=== PATIENT | female | born 1975 | race African-American/Black ===

== ENCOUNTER 2020-10-03 15:22 | Outpatient (CLI) | payer BC, SELFPAY ==
--- NOTE | ~2020-10-03 | MM_ITS ---
EXAMINATION: MM screening desiree BI w sivakumar HISTORY: Screening TECHNIQUE: Craniocaudal and mediolateral oblique 3-D tomosynthesis images were obtained and synthetic 2-D images were generated. CAD analysis was submitted and interpreted. COMPARISON: 10/13/2018 BREAST PARENCHYMAL COMPOSITION: There are scattered areas of fibroglandular density. FINDINGS: There is no evidence of suspicious mass, calcification, or architectural distortion to sugg est malignancy in either breast. There has been no suspicious interval change. IMPRESSION: 1. No mammographic evidence of malignancy. 2. Recommend routine screening mammography in one year. BI-RADS Category 1: Negative Reviewed, dictated and finalized at location A.
== END 2020-10-03 15:23 | disposition home or self-care (01) ==
PROVIDERS: PCP Physician Assistant; Visit Provider Physician Assistant
DX: Z12.31 Encounter for screening mammogram for malignant neoplasm of breast (principal)
CPT/HCPCS: 77063; 77067

== ENCOUNTER → 2020-11-03 10:45 | Outpatient (CLI) | payer BC, SELFPAY ==
--- NOTE | ~2020-11-03 | US_ITS ---
EXAMINATION: US pelvic complete w TV DATE: 11/03/2020 11:31 INDICATION: Enlarged uterus Comparison:10/21/2017 TECHNIQUE: Multiple transabdominal and endovaginal sonographic images of the pelvis performed. FINDINGS: The uterus measures 10.5 x 7.9 x 7.8 cm. There are multiple uterine masses, largest measuri ng 6 cm maximum dimension. The endometrial complex measures 7 mm. The ovaries are not visualized. There is no free fluid in the pelvis. There are no abnormal masses seen on either side. IMPRESSION: 1. Enlarged fibroid uterus. Reviewed, dictated and finalized at location A. IMPRESSION: 1. Enlarged fibroid uterus.
--- NOTE | ~2020-11-03 | US_ITS ---
EXAMINATION: US thyroid EXAM DATE: 11/03/2020 11:23 INDICATION: E04.9 - Nontoxic goiter, unspecified . TECHNIQUE: Multiple grayscale and Doppler images of the thyroid were obtained (by a technologist who performed the scan) and subsequently reviewed. Individual nodules and recommendations may be reporte d in accordance with TI-RADS system as designated by the 2017 ACR White Paper TI-RADS committee. The re is no prior study for comparison. FINDINGS: Right thyroid lobe measures 4.5 x 1.8 x 1.5 cm, the left measuring 4.3 x 1.8 x 1.6 cm. There is diffu sely heterogeneous thyroid echogenicity with probable identification of a couple of thyroid nodules w ithin the heterogeneous parenchyma. Largest right thyroid lobe nodule measures 9 x 8 x 9 mm, solid (2 points), hypoechoic (2 points), wid er than tall, smooth well defined margin, without echogenic foci, category TR4 for this nodule. Largest possible left thyroid nodule measures 1.4 x 1.0 x 1.0, solid (2 points), heterogeneous echoge nicity (difficult to determine, 1 point), wider than tall, smooth well defined margin, without echoge claudia foci, category TR3 for this nodule. IMPRESSION: Mild thyromegaly and several thyroid nodules suspected. Recommend one-year follow-up th yroid ultrasound. Reviewed, dictated and finalized at location A. IMPRESSION: Mild thyromegaly and several thyroid nodules suspected. Recommend one-year follow-up thyroid ultrasound.
== END ==
PROVIDERS: Visit Provider Obstetrics & Gynecology
DX: N85.2 Hypertrophy of uterus (principal); E04.9 Nontoxic goiter, unspecified; D25.9 Leiomyoma of uterus, unspecified
CPT/HCPCS: 76536; 76830; 76856

== ENCOUNTER 2022-03-04 09:25 | Outpatient (CLI) | payer BC, SELFPAY ==
--- NOTE | ~2022-03-04 | MM_ITS ---
EXAMINATION: MM screening desiree BI w sivakumar HISTORY: Screening mammogram TECHNIQUE: Craniocaudal and mediolateral oblique 3-D tomosynthesis images were obtained and synthetic 2-D images were generated. CAD analysis was submitted and interpreted. COMPARISON: and bilateral screening mammogram examinations BREAST PARENCHYMAL COMPOSITION: The breasts are almost entirely fatty. FINDINGS: There is no evidence of suspicious mass, calcification, or architectural distortion to sugg est malignancy in either breast. There has been no suspicious interval change. IMPRESSION: 1. No mammographic evidence of malignancy. 2. Recommend routine screening mammography in one year. BI-RADS Category 1: Negative Reviewed, dictated and finalized at location A.
== END 2022-03-04 09:26 | disposition home or self-care (01) ==
PROVIDERS: Visit Provider Physician Assistant
DX: Z12.31 Encounter for screening mammogram for malignant neoplasm of breast (principal)
CPT/HCPCS: 77063; 77067

== ENCOUNTER 2022-04-27 10:12 | Outpatient (CLI) | payer BC, SELFPAY ==
--- NOTE | ~2022-04-27 | US_ITS ---
EXAMINATION: US thyroid DATE: 04/27/2022 11:08 INDICATION: Nontoxic goiter, unspecified. TECHNIQUE: Multiple ultrasound images of the thyroid were obtained. COMPARISON: Ultrasound 11/03/2020 FINDINGS: The right thyroid lobe measures 5.3 x 1.8 x 2.3 cm. The left thyroid lobe measures 4.6 x 2.0 x 1.8 c m. The thyroid demonstrates diffusely coarsened echotexture. The thyroid is filled with ill-defined nodules of similar ultrasound appearance. Vascularity is increased. IMPRESSION: 1. Heterogeneous, hypervascular thyroid, likely chronic lymphocytic (Don) thyroiditis. Reviewed, dictated and finalized at location A. SOLUTION ARCHITECT
--- NOTE | ~2022-04-27 | US_ITS ---
EXAMINATION: US pelvic complete w TV DATE: 04/27/2022 11:08 INDICATION: N85.2 - Hypertrophy of uterus . Follow-up fibroids. TECHNIQUE: Multiple transabdominal and endovaginal sonographic images of the pelvis were obtained. COMPARISON: 11/03/2020 FINDINGS: Uterus: 11.2 x 8.1 x 7.4 cm. Heterogeneous uterine parenchyma due to multiple uterine fibroids. The l argest measures 6.4 x 7.3 x 5.8 cm. Endometrial complex measures 7 mm. Right Ovary: Not adequately visualized. Left Ovary: Not visualized. There is no free fluid in the pelvis. IMPRESSION: Uterine fibroids, detailed above. Bilateral ovaries not adequately visualized. Reviewed, dictated and finalized at location K. STIC SENSOR OPERATOR
== END 2022-04-27 10:13 | disposition home or self-care (01) ==
PROVIDERS: PCP Obstetrics & Gynecology; Visit Provider Obstetrics & Gynecology
DX: E04.9 Nontoxic goiter, unspecified (principal); D25.9 Leiomyoma of uterus, unspecified; N85.2 Hypertrophy of uterus
CPT/HCPCS: 76536; 76830; 76856

== ENCOUNTER 2022-08-09 11:14 | Outpatient (CLI) | payer BC, SELFPAY ==
[2022-08-09 17:19] LABS: Free T4 Free Thyroxine 0.87 ng/mL (0.78-2.19); Vitamin D 25 Hydroxy 17.1 ng/mL
== END 2022-08-09 11:15 | disposition home or self-care (01) ==
LOC: ANHWCLAB 11:18
PROVIDERS: PCP Physician Assistant; Visit Provider Internal Medicine Endocrinology, Diabetes & Metabolism
DX: E55.9 Vitamin D deficiency, unspecified (principal); R79.89 Other specified abnormal findings of blood chemistry; R76.8 Other specified abnormal immunological findings in serum
CPT/HCPCS: 36415; 82306; 84439; 84443

== ENCOUNTER 2023-08-05 14:42 | Outpatient (CLI) | payer BC, SELFPAY ==
--- NOTE | ~2023-08-05 | MM_ITS ---
EXAMINATION: MM screening [facility] BI w sivakumar HISTORY: Screening mammogram TECHNIQUE: Craniocaudal and mediolateral oblique 3-D tomosynthesis images were obtained and synthetic 2-D images were generated. CAD analysis was submitted and interpreted. COMPARISON: 03/04/2022, 10/03/2020, 10/13/2018 BREAST PARENCHYMAL COMPOSITION: The breasts are almost entirely fatty. FINDINGS: No suspicious mass, calcification, or architectural distortion are identified in either linda ast to suggest malignancy. There has been no suspicious interval change. IMPRESSION: 1. No mammographic evidence of malignancy. 2. Recommend routine screening mammography in one year. BI-RADS Category 1: Negative Reviewed, dictated and finalized at location A. MAKER
== END 2023-08-05 14:43 | disposition home or self-care (01) ==
LOC: ANHIMG 14:45
PROVIDERS: PCP Physician Assistant; Visit Provider Obstetrics & Gynecology
DX: Z12.31 Encounter for screening mammogram for malignant neoplasm of breast (principal)
CPT/HCPCS: 77063; 77067

== ENCOUNTER 2024-01-05 14:45 | Outpatient (CLI) | payer BC, SELFPAY ==
[2024-01-05 16:03] LABS: HIV 1/2 Ab P24 Ag Result Negative (Negative)
[2024-01-05 17:33] LABS: Hepatitis C Virus Antibody Negative (Negative)
[2024-01-05 18:23] LABS: Rapid Plasma Reagin Non-Reactive (NonReactive)
[2024-01-11 02:24] LABS: Hepatitis Be Antibody NON-REACTIVE (NON-REACTIVE)
== END 2024-01-05 14:46 | disposition home or self-care (01) ==
LOC: ANHLAB 14:47
PROVIDERS: Visit Provider Nurse Practitioner Obstetrics & Gynecology
DX: Z11.3 Encounter for screening for infections with a predominantly sexual mode of transmission (principal); E04.9 Nontoxic goiter, unspecified
CPT/HCPCS: 36415; 84443; 86592; 86703; 86707; 86803; G0432

== ENCOUNTER 2024-08-03 16:01 | Outpatient (CLI) | payer BC, SELFPAY ==
--- NOTE | ~2024-08-03 | US_ITS ---
EXAM: PELVIC ULTRASOUND HISTORY: N85.2 - Hypertrophy of uterus COMPARISON: 04/27/2022. FINDINGS: UTERUS: 21 x 11 x 12 cm. The endometrial complex measures 9 mm. Multiple fibroids are identified within the uterus. The largest is within the intramural space along the posterior body of the uterus measuring 10.8 x 10 .4 x 8.2 cm. Linear striations are also detected, findings suggesting adenomyosis RIGHT OVARY: Despite prolonged interrogation, the right ovary was not visualized. LEFT OVARY: The left ovary is unremarkable in echogenicity and size measuring 5.3 x 2.2 x 3.4 cm Dopplerable flow is identified. No free fluid is identified within the pelvis. IMPRESSION: Markedly enlarged fibroid uterus. Additional findings suggesting adenomyosis. Despite prolonged interrogation, the right ovary was not visualized. Reviewed, dictated and finalized at location A. R MACHINE TENDER
== END 2024-08-03 16:02 | disposition home or self-care (01) ==
PROVIDERS: PCP Obstetrics & Gynecology; Visit Provider Nurse Practitioner Obstetrics & Gynecology
DX: D25.9 Leiomyoma of uterus, unspecified (principal); N85.2 Hypertrophy of uterus
CPT/HCPCS: 76830; 76856

== ENCOUNTER 2024-10-05 14:24 | Outpatient (CLI) | payer BC, SELFPAY ==
--- NOTE | ~2024-10-05 | MM_ITS ---
EXAMINATION: MM screening [facility] BI w sivakumar HISTORY: Screening TECHNIQUE: Craniocaudal and mediolateral oblique 3-D tomosynthesis images were obtained and synthetic 2-D images were generated. CAD analysis was submitted and interpreted. COMPARISON: Comparison to multiple prior studies sequentially, with oldest reviewed study dated 10/13. BREAST PARENCHYMAL COMPOSITION: Not dense: There are scattered areas of fibroglandular density. FINDINGS: There is no evidence of suspicious mass, calcification, or architectural distortion to sugg est malignancy in either breast. There has been no suspicious interval change. IMPRESSION: 1. No mammographic evidence of malignancy. 2. Recommend routine screening mammography in one year. BI-RADS Category 1: Negative Reviewed, dictated and finalized at location B.
--- OUTSIDE RECORDS SUMMARY | 2024-10-05 14:29 | XMS_ITS | Clinical Summary ---
Author Organization [facility] Address [facility] [place] [address] Care Team Providers Care Lead Generator Name Role Phone Chaparro Alves PA-C Primary Care Provider [phone] Allergies Active Allergy Reactions Criticality Noted Date Comments Aspirin Other (see comment) 11/10/2020 told me not to take it because of my asthma Medications albuterol sulfate HFA 108 (90 Base) MCG/ACT inhaler Inhale 2 puffs into the lungs. 12/06/2019 Active valACYclovir 500 MG tablet TAKE 1 TABLET BY MOUTH EVERY 12 HOURS FOR 3 DAYS NEEDED FOR SYMPTOMS 10/09/2020 Active tranexamic acid 650 MG tablet TAKE 2 TABLETS BY MOUTH THREE TIMES DAILY NEEDED FOR HEAVY PERIOD 10/09/2020 Active methylPREDNISol one, AYAN, (MEDROL DOSEPAK) 4 MG tablet Take 1 tablet (4 mg total) by mouth daily. 6 TABLETS ON DAY ONE, 5 TABLETS DAY TWO, 4 TABLETS DAY THREE, 3 TABLETS DAY FOUR, 2 TABLETS DAY FIVE, AND 1 TABLET DAY SIX 1 each 04/24/2023 Active Active Problems No known active problems Family History Medical History Relation Comments Diabetes Father Anxiety Mother Depression Mother Relation Status Comments Father Alive Mother Alive Social History Tobacco Use Types Packs/Day Years Used Date Smoking Tobacco: Never Smokeless Tobacco: Never Alcohol Use Standard Drinks/Week Comments Not Currently 0 (1 standard drink = 0.6 oz pur e alcohol) socially Comments No Sex and Gender Information Value Date Recorded Sex Assigned at Not on file Legal Sex Female 7:41 PM CDT Gender Identity Not on file Sexual Orientation Not on file Last Filed Vital Signs Vital Sign Reading Time Taken Comments Blood Pressure 113/69 06/18/2024 11:49 AM POWER ENGINEER Pulse 98 06/18/2024 11:49 AM POWER ENGINEER Temperature 36.8 C (98.3 F) 06/18/2024 11:49 AM POWER ENGINEER Respiratory Rate 18 06/18/2024 11:49 AM POWER ENGINEER Oxygen Saturation 100% 06/18/2024 11:49 AM POWER ENGINEER Inhaled Oxygen Concentration - - Weight 101.2 kg (223 lb) 06/18/2024 11:49 AM POWER ENGINEER Height 160 cm (5' 3 ) 06/18/2024 11:49 AM POWER ENGINEER Body Mass Index 39.5 06/18/2024 11:49 AM POWER ENGINEER Plan of Treatment Health Maintenance Due Date Last Done Comments Cervical Cancer Screening Pa p Smear (Age 30 to 64) Every 3 Years 1977 Colorectal Cancer Screening Colonoscopy (10 Years) 1977 Annual Physical 01/19/1980 Hepatitis C 1995 Hepatitis B Vaccines (1 of 3 - 19+ 3-dose series) 01/19/1996 Cervical Cancer Screening Pa p with HPV Testing (Age 30 to 64) Every 5 Years 2007 Cervical Cancer Screening wi HPV 2007 Mammogram Screening 2017 COVID-19 Vaccine (4 - 2023-2 5 season) 2024 04/18/2021, 08/19/2020, 07/29/2020 DTaP, Tdap and Td Vaccines ( 2 - Td or Tdap) 07/13/2024 07/13/2014 Meningococcal B Vaccine Aged Out No l onger eligible based on patient's age to complete this topic Meningococcal Vaccine Aged Out No laurie meliza eligible based on patient's age to complete this topic Pneumococcal Vaccine: Pediatrics (0 to 5 Years) and At-Risk Patients (6 to 49 Years) Aged Out No longer eligible b ased on patient's age to complete this topic RSV Immunizations Under 20 Months Aged Out No longer eligible b ased on patient's age to complete this topic Insurance [facility] Care Teams Lead Generator Relationship Specialty Start Date End Date Chaparro Alves PA-C [address] [place] [phone] PCP - General 05/30/13
--- OUTSIDE RECORDS SUMMARY | 2024-10-05 14:29 | XMS_ITS | Referral Summary ---
Author Organization [facility] Address [address] [place] [id number] Care Team Providers Care Welding Setter Name Role Phone Chaparro Alves Primary Care Provider [phone] Allergies Active Allergy Reactions Criticality Noted Date Comments Aspirin Unknown 04/25/2019 Medications valACYclovir (VALTREX) 500 mg tablet 09/03/2019 Active tranexamic acid (LYSTEDA) 650 mg tablet TAKE 2 TABLETS BY MOUTH THREE TIMES DAILY NEEDED FOR HEAVY PERIOD 10/09/2020 Active albuterol HFA (PROVENTIL HFA,VENTOLIN HFA,PROAIR HFA) 90 mcg/actuation inhalerIndicati ons:Bronchospas m Prevention Inhale 2 puffs every 6 (six) hours as needed for wheezing 1 each 05/11/2023 Active Active Problems Problem Noted Date Diagnosed Date Diarrhea of presumed infectious origin Assessment & Plan (08/24/2023 4:47 PM REGISTERED PHLEBOTOMIST PART TIME): This is resolving and patient is feeling better we did discuss that Pepto-Bismol can dark in your stool she will pay attention for returned to normal we did discuss proper hydration Dehydration 08/24/2023 Assessment & Plan (08/24/2023 4:47 PM REGISTERED PHLEBOTOMIST PART TIME): This is mild and patient is able to keep fluids down we discussed the importance of hydration and how to properly hydrate she will update me if she has any Visit for suture removal 06/21/2023 Assessment & Plan (06/21/2023 8:36 AM REGISTERED PHLEBOTOMIST PART TIME): No issues EIC (epidermal inclusion cyst) 06/09/2023 Assessment & Plan (06/09/2023 3:33 PM REGISTERED PHLEBOTOMIST PART TIME): Images from the original note were not included. minor Surgery: Pt here with: excision cyst on left breast Discussed risks and complications to include: bleeding, infection, scarring, bruising, discomfort, recurrence Surgical outcome discussed Pt verbalizes understanding and all questions answered. Procedure: 1. Site(s) prepped and draped and local anaesthetic administered under sterile technique. Cleansed with Surgiscrub Infiltrated with: 1% lidocain with without 2. Excision/biopsy done, lesion removed, and sent to pathology: 3. Site closed with: Four 5. Suture nylon 4. Bacitracin and bandage applied EBL: Trace Pt tolerated the procedure well Post procedure instructions: 1. Keep site clean and dry. 2. Watch for infection or complication, handout provided 3. Sutures removed on: 10 days 4. OTC tylenol or NSAIDs prn discomfort RTC prn or if problems arise Pt verbalizes understanding and all questions answered Subacute cough 05/11/2023 Assessment & Plan (05/11/2023 3:37 PM REGISTERED PHLEBOTOMIST PART TIME): Vital signs stable, no respiratory distress, nontoxic appearance, wheezing on exam, 99% on RA Supportive care, rest, clear sugar-free fluids (water), steam inhalation/humidifier Refilled albuterol inhaler to use prn Prednisone 40 mg x 5 days Augmentin as directed If no improvement, will need to f/u with PCP for further workup Sensation of fullness in both ears 05/11/2023 Assessment & Plan (05/11/2023 3:39 PM REGISTERED PHLEBOTOMIST PART TIME): Attempted ear irrigation, pt did not tolerate well Recommend OTC Debrox Other chest pain 01/20/2023 Assessment & Plan (01/20/2023 2:44 PM CDT): This is not present today in his consistent with musculoskeletal pain it is relieved with walking around I have asked the patient to palpate her pain next time it happens to see if she can locate the spot EKG was sinus rhythm risk factors are low we did discuss signs and symptoms that would warrant urgent attention Acute non-recurrent maxillary sinusitis 04/12/20 Assessment & Plan (04/12/2022 12:12 PM CDT): Aggressive nasal saline, meds as ordered Hot flashes 07/06/2021 Assessment & Plan (07/06/2021 2:12 PM REGISTERED PHLEBOTOMIST PART TIME): - unclear etiology, ddx includes thyroid d/o, elias-menopausal, covid - pt low risk for covid given 3 vaccinations and no exposure, staying/working at home - young for elias-menopause but given late menstrual period and mid-40s age possible cause - will check TSH, FSH/LH, prolactin - if all normal then reassurance and monitor for now Constipation 09/12/2020 Assessment & Plan (09/12/2020 4:18 PM CDT): - uncontrolled - start linzess 145mg daily - will go up or down on dose based on response - discussed use of fiber supplements and healthy diet - f/u in 2 mo Class 3 severe obesity due t o excess calories without serious comorbidity with body mass index (BMI) of 40.0 to 44.9 in adult 09/12/2020 Assessment & Plan (09/12/2020 4:19 PM CDT): - I recommend a healthy diet of 2,000 calories per day or less with plenty of fresh fruits and vegetables, whole grains, lean meats and fatty fish such as salmon - I recommend regular exercise of at least 30 minutes 4-5x/week to maintain a healthy heart, increase weight loss, and lower your blood pressure Lymphadenopathy 08/21/2020 Assessment & Plan (09/12/2020 4:17 PM CDT): - resolved - no further testing or treatment necessary - pt reassured Assessment & Plan (08/21/2020 3:19 PM REGISTERED PHLEBOTOMIST PART TIME): - supraclavicular lypmhadenopathy - likely reactive to COVID vaccination - pt reassured - pt to f/u in 2 wks, if still palpable then will get CXR, US, and mammogram. Dizziness 12/06/2019 Assessment & Plan (12/06/2019 3:53 PM CDT): Drink lots of water for hydration No operating a motor vehicle or machinery with dizziness Take medications as ordered Discussed reproducing signs and symptoms Chronic idiopathic constipation 04/25/2019 Assessment & Plan (04/26/2019 1:03 PM REGISTERED PHLEBOTOMIST PART TIME): Start Miralax 17g in 8oz water nightly for 1-2 weeks until BMs are soft, then decrease to every other night, then every 3rd night if bowel movements remain regular. Can also take a stool softener (Colace-docusate sodium) daily. Recommend increasing fiber in diet and fluids. Pain in pelvis 04/25/2019 Assessment & Plan (04/26/2019 1:02 PM REGISTERED PHLEBOTOMIST PART TIME): Unaware until PE, with mild tenderness on palpation. Urine dip was normal in office, did not send out for culture. Bilateral upper abdominal discomfort 04/25/2019 Assessment & Plan (04/26/2019 1:01 PM REGISTERED PHLEBOTOMIST PART TIME): Pepcid OTC as directed for upper abdominal pain as she states she has a history of inflammation in the lining of her stomach. Follow-up with PCP if symptoms don't improve or worsen. ER if increase in abdominal pain or fever or unable to have a BM. Asthma 12/25/2015 Assessment & Plan (05/11/2023 3:37 PM REGISTERED PHLEBOTOMIST PART TIME): Vital signs stable, no respiratory distress, nontoxic appearance, wheezing on exam, 99% on RA Supportive care, rest, clear sugar-free fluids (water), steam inhalation/humidifier Refilled albuterol inhaler to use prn Prednisone 40 mg x 5 days Augmentin as directed If no improvement, will need to f/u with PCP for further workup Assessment & Plan (01/20/2023 2:43 PM CDT): This is stable will follow Assessment & Plan (12/06/2019 3:56 PM CDT): Inhaler refilled Immunizations Immunization Administration Dates Next Due Influenza, Trivalent, IM (MDV) 07/13/2014 Influenza, Unspecified 06/09/2023(Deferr ed: Patient decision),03/26/2023(Deferred: Patient decision),06/09/2022(Deferred: Patient decision),04/22/2022(Deferred: Patient decision),04/20/2022(Deferred: Patient Refused),04/12/2022(Deferred: Patient Refused),04/12/2021(Deferred: Patient Refused),03/20/2020(Deferred: Patient Refused) Pfizer SARS-CoV-2 Monovalent Vaccination (12+ Yrs) PURPLE 04/18/2021,08/19/2020,07/29/2020 Tdap 07/13/2014 Social History Tobacco Use Types Packs/Day Years Used Date Smoking Tobacco: Never Smokeless Tobacco: Never Tobacco Cessation:Counseling Given: Not Answered Alcohol Use Standard Drinks/Week Comments Yes 0 (1 standard drink = 0.6 oz pur e alcohol) Occasionally AUDIT-C Answer Date Recorded Q1: How often do you have a drink containing alc ohol? Never 08/24/2023 Average Number of Drinks Not on file 024 Frequency of Binge Drinking Not on file 11/2023 PHQ-2 Answer Date Recorded PHQ-2 Total Score (If total score is 3 or more points, staff should administer the PHQ-9) 0 08/24/2022 Personal Safety Answer Date Recorded Getting School Help Needed Not on file 05/31 Comments No Sex and Gender Information Value Date Recorded Sex Assigned at Not on file Legal Sex Female 12:34 AM REGISTERED PHLEBOTOMIST PART TIME Gender Identity Female 04/07/2022 6:58 AM CDT Sexual Orientation Not on file Last Filed Vital Signs Vital Sign Reading Time Taken Comments Blood Pressure 118/76 08/24/2023 4:04 PM REGISTERED PHLEBOTOMIST PART TIME Pulse 102 08/24/2023 4:04 PM REGISTERED PHLEBOTOMIST PART TIME Temperature 35.8 C (96.4 F) 08/24/2023 4:04 PM REGISTERED PHLEBOTOMIST PART TIME Respiratory Rate 16 08/24/2023 4:04 PM REGISTERED PHLEBOTOMIST PART TIME Oxygen Saturation 98% 08/24/2023 4:04 PM REGISTERED PHLEBOTOMIST PART TIME Inhaled Oxygen Concentration - - Weight 105.7 kg (233 lb) 08/24/2023 4:04 PM REGISTERED PHLEBOTOMIST PART TIME Height 162.6 cm (5' 4 ) 08/24/2023 4:04 PM REGISTERED PHLEBOTOMIST PART TIME Body Mass Index 39.99 08/24/2023 4:04 PM REGISTERED PHLEBOTOMIST PART TIME Plan of Treatment Not on file Procedures Procedure Name Priority Date/Time Associated Diagnosis Comments SCREENING MAMMOGRAM BILATERAL W GOPI Schedule Routine, Read Routine (OP Routine) 10/03/2020 from Last 3 Months or Most Recently Relevant to Health Maintenance Results * Screening Mammogram Bilateral W Gopi (10/03/2020) Anatomical Region Laterality Modality Breast Bilateral Mammography Narrative 10/03/2020 Report scanned into media Historical Provider MD CASTELL[facility]O MAMMO PROCEDURES Olivia l Result from Last 3 Months or Most Recently Relevant to Health Maintenance Insurance [email or web address] [phone] [facility] Care Teams Welding Setter Relationship Specialty Start Date End Date Chaparro Alves PA PCP - General Family Medicine 04/25/19
--- OUTSIDE RECORDS SUMMARY | 2024-10-05 14:29 | XMS_ITS | Clinical Summary ---
Author Organization [facility] Address [address] [place] [id number] Care Team Providers Care Logging Equipment Operator Name Role Phone Chaparro Alves Primary Care Provider [phone] Allergies Active Allergy Reactions Criticality Noted Date [...] origin Assessment & Plan (08/24/2023 4:47 PM MEDICAL INSTRUCTOR): This is resolving and patient is feeling better we did discuss that Pepto-Bismol can dark in your stool she will pay attention for returned to normal we did discuss proper hydration Dehydration 08/24/2023 Assessment & Plan (08/24/2023 4:47 PM MEDICAL INSTRUCTOR): This is mild and patient is able to keep fluids down we discussed the importance of hydration and how to properly hydrate she will update me if she has any Visit for suture removal 06/21/2023 Assessment & Plan (06/21/2023 8:36 AM MEDICAL INSTRUCTOR): No issues EIC (epidermal inclusion cyst) 06/09/2023 Assessment & Plan (06/09/2023 3:33 PM MEDICAL INSTRUCTOR): Images from the original note were not [...] 05/11/2023 Assessment & Plan (05/11/2023 3:37 PM MEDICAL INSTRUCTOR): Vital signs stable, no respiratory distress, nontoxic appearance, wheezing on exam, 99% on RA Supportive care, rest, clear sugar-free fluids (water), steam inhalation/humidifier Refilled albuterol inhaler to use prn Prednisone 40 mg x 5 days Augmentin as directed If no improvement, will need to f/u with PCP for further workup Sensation of fullness in both ears 05/11/2023 Assessment & Plan (05/11/2023 3:39 PM MEDICAL INSTRUCTOR): Attempted ear irrigation, pt did not tolerate [...] 07/06/2021 Assessment & Plan (07/06/2021 2:12 PM MEDICAL INSTRUCTOR): - unclear etiology, ddx includes thyroid d/o, [...] reassured Assessment & Plan (08/21/2020 3:19 PM MEDICAL INSTRUCTOR): - supraclavicular lypmhadenopathy - likely reactive to [...] 04/25/2019 Assessment & Plan (04/26/2019 1:03 PM MEDICAL INSTRUCTOR): Start Miralax 17g in 8oz water nightly for 1-2 weeks until BMs are soft, then decrease to every other night, then every 3rd night if bowel movements remain regular. Can also take a stool softener (Colace-docusate sodium) daily. Recommend increasing fiber in diet and fluids. Pain in pelvis 04/25/2019 Assessment & Plan (04/26/2019 1:02 PM MEDICAL INSTRUCTOR): Unaware until PE, with mild tenderness on palpation. Urine dip was normal in office, did not send out for culture. Bilateral upper abdominal discomfort 04/25/2019 Assessment & Plan (04/26/2019 1:01 PM MEDICAL INSTRUCTOR): Pepcid OTC as directed for upper abdominal pain as she states she has a history of inflammation in the lining of her stomach. Follow-up with PCP if symptoms don't improve or worsen. ER if increase in abdominal pain or fever or unable to have a BM. Asthma 12/25/2015 Assessment & Plan (05/11/2023 3:37 PM MEDICAL INSTRUCTOR): Vital signs stable, no respiratory distress, nontoxic [...] Vaccination (12+ Yrs) PURPLE 04/18/2021,08/19/2020,07/29/2020 Tdap 07/13/2014 Surgical History Surgery Date Site/Laterality Comments MYOMECTOMY 06/20/2006 - 06/19/2007 Per pt. 2 surgeries FOOT SURGERY 06/20/2004 - 06/19/2005 Medical History Medical History Date Comments Asthma Family History Medical History Relation Name Comments Asthma Mother Sylvie Hall Relation Name Status Comments Father Mother Sylvie Hall Alive Social History Tobacco Use Types Packs/Day [...] on file Legal Sex Female 12:34 AM MEDICAL INSTRUCTOR Gender Identity Female 04/07/2022 6:58 AM CDT Sexual Orientation Not on file Obstetrics History Last Filed Vital Signs Vital Sign Reading Time Taken Comments Blood Pressure 118/76 08/24/2023 4:04 PM MEDICAL INSTRUCTOR Pulse 102 08/24/2023 4:04 PM MEDICAL INSTRUCTOR Temperature 35.8 C (96.4 F) 08/24/2023 4:04 PM MEDICAL INSTRUCTOR Respiratory Rate 16 08/24/2023 4:04 PM MEDICAL INSTRUCTOR Oxygen Saturation 98% 08/24/2023 4:04 PM MEDICAL INSTRUCTOR Inhaled Oxygen Concentration - - Weight 105.7 kg (233 lb) 08/24/2023 4:04 PM MEDICAL INSTRUCTOR Height 162.6 cm (5' 4 ) 08/24/2023 4:04 PM MEDICAL INSTRUCTOR Body Mass Index 39.99 08/24/2023 4:04 PM MEDICAL INSTRUCTOR Plan of Treatment Health Maintenance Due Date Last Done Comments Cervical Cancer Screening 1977 Colon Cancer Screening-Colonoscopy 1977 Hepatitis C Screening 1977 Hepatitis B Screening 1995 Regular Well Visit/Exam 18-64 1995 Pneumococcal vaccine <65 (1 of 2 - PCV) 01/19/1996 Breast Cancer Screening-Mammogram 10/03/2021 021 Depression Screening 08/25/2023 08/24/2022, 07/06/2021, 12/06/2019 Covid-19 Vaccine ( season) 2024 04/18/2021, 08/19/2020, 07/29/2020 DTaP/Tdap/Td Vaccine (2 - Td or Tdap) 07/13/2024 Influenza Vaccine (Season Ended) 2025 07/13/19 15 Procedures Procedure Name Priority Date/Time Associated Diagnosis Comments SCREENING MAMMOGRAM BILATERAL W GOPI Schedule Routine, Read Routine (OP Routine) 10/03/2020 from Last 3 Months or Most Recently Relevant to Health Maintenance Results * Screening Mammogram Bilateral W Gopi (10/03/2020) Anatomical Region Laterality Modality Breast Bilateral Mammography Narrative 10/03/2020 Report scanned into media us Historical Provider MD [facility] MAMMO PROCEDURES Olivia l Result from Last 3 Months or Most Recently Relevant to Health Maintenance [place] Care Teams Logging Equipment Operator Relationship Specialty Start Date End Date Chaparro Alves PA PCP - General Family Medicine 04/25/19
--- OUTSIDE RECORDS SUMMARY | 2024-10-05 14:29 | XMS_ITS | Clinical Summary ---
Author Organization [facility] Care Team Providers Care Experimental Aircraft Mechanic Name Role Phone Unavailable Primary Care Provider Unavailabl e Social History Tobacco Use Types Packs/Day Years Used Date Smoking Tobacco: Never Assessed Comments Unknown Sex and Gender Information Value Date Recorded Sex Assigned at Not on file Legal Sex Female 9:43 AM NUTRITION THERAPIST Gender Identity Not on file Sexual Orientation Not on file Plan of Treatment Health Maintenance Due Date Last Done Comments Hepatitis C Virus (HCV) Screening 1977 TdaP Immunization 1977 Hepatitis B Immunization (1 of 3 - 19+ 3-dose series) 01/19/1996 Pap Smear 1998 Cervical Cancer Screening (CCS) 2007 HPV/Cotest 2007 Discussion re Starting/Frequ ency of Mammograms 2017 Colonoscopy 2022 Colorectal Cancer Screening 2022 Influenza Immunization (#1) 2024 SARS-COV-2 Immunization ( season) 2024 Respiratory Syncytial Virus (RSV) Immunization (Adult) (1 - 1-dose 75+ series) 01/19/2052 Meningococcal Immunization (ACWY) Aged Out No longer eligible based on patient's age to complete this topic Pneumococcal Immunization Combined Aged Out No longer eligible based on patient's age to complete this topic Rotavirus Immunization Aged Out No lo nger eligible based on patient's age to complete this topic
== END 2024-10-05 14:25 | disposition home or self-care (01) ==
PROVIDERS: PCP Physician Assistant; Visit Provider Nurse Practitioner Obstetrics & Gynecology
DX: Z12.31 Encounter for screening mammogram for malignant neoplasm of breast (principal)
CPT/HCPCS: 77063; 77067